=== PATIENT | male | born 1965 | race Caucasian/White ===

== ENCOUNTER 2017-09-25 22:50 | Emergency (ER) | payer MEDICARE, MEDICAID, SELFPAY ==
[2017-09-25 22:51] VITALS: BP 147/75; PULSE 80; RESP 18; TEMP 36.9; O2SAT 95; BMI 35.4
--- NOTE | 2017-09-25 23:16 | PC.NURSE ---
CLEANSED AREA ON BUTTOCK WITH SOAP AND WATER AND PATTED DRY. DRY DRSG APPLIED.
--- NOTE | 2017-09-25 23:28 | HMH.EDSKAF ---
ED Disposition Clinical Impression: Erysipelas, ESRD (end stage renal disease) on dialysis Cellulitis Qualifiers: Site of cellulitis: buttock Qualified Code(s): L03.317 - Cellulitis of buttock Disposition: Home, Self-Care Condition on Discharge: Good Instructions: DI for Skin Abscess Additional Instructions: will need wound care to follow at [facility] and use abx - check culture results - Critical Care Critical Care Time: No Attestation: On , the high probability of a clinically significant, sudden or life threatening deterioration of the following system(s) required my full and direct attention, intervention and personal management. The time I documented below is in addition to time spent performing reported procedures but includes the following listed in this critical care notation. Medical Decision Making - Medical Records Medical records reviewed: Yes: I reviewed the patient's medical records. Vital Signs: 09/25/17 22:51 09/26/17 00:30 Temperature 98.4 F Temperature Source Oral Pulse Rate [Right Radial] 80 82 Respiratory Rate 18 18 Blood Pressure [Right Arm] 147/75 131/76 Blood Pressure Mean [Right Arm] 99 94 Blood Pressure Source [Right Arm] Automatic Cuff Automatic Cuff Blood Pressure Position [Right Arm] Sitting Supine 02 Sat by Pulse Oximetry 95 96 Oxygen Delivery Method Room Air Room Air - Lab Data Lab results reviewed: Yes: I reviewed the patient's lab results. Lab Results 09/25/17 23:55: WBC 4.8, RBC 3.61 L, Hgb 10.8 L, Hct 36.3 L, MCV 100.7 H, MCH 29.8, MCHC 29.6 L, RDW 18.6 H, Plt Count 175, MPV 7.7, Neut % (Auto) 67.9, Lymph % (Auto) 14.8, [place] % (Auto) 9.9 H, Eos % (Auto) 6.2, Baso % (Auto) 1.1, Neut # (Auto) 3.2, Lymph # (Auto) 0.7, [place] # (Auto) 0.5, Eos # (Auto) 0.3, Baso # (Auto) 0.1 09/25/17 23:55: Sodium 132 L, Potassium 4.4, Chloride 96 L, Carbon Dioxide 28, Anion Gap 12.4, BUN 22 H, Creatinine 4.24 H, Estimated Creat Clear 32, Estimated GFR 15 L*, Est GFR ( Amer) 18 L*, Glucose 385 H, Calcium 8.1 L, Total Bilirubin 0.4, AST 14 L, ALT 19, Alkaline Phosphatase 214 H, Total Protein 8.1, Albumin 3.0 L, Globulin 5.1 H, Albumin/Globulin Ratio 0.6 L Result diagrams: 09/25/17 23:55 09/25/17 23:55 Orders (Tests/Meds): ED MEDICATIONS Discontinued Medications Generic Name Dose Route Start Last Admin Trade Name Freq PRN Reason Stop Dose Admin Cephalexin HCl 500 mg 09/26/17 00:29 Cephalexin 500mg Capsule PO 09/26/17 00:30 ONCE ONE Protocol Trimethoprim/Sulfamethoxazole 1 each 09/26/17 00:29 Bactrim Ds Tablet PO 09/26/17 00:30 ONCE ONE Protocol ORDERS Category Date Time Status Wound Culture and Gram Stain Stat Micro 09/25/17 23:30 Ordered - Zhang Inquiry Pt receiving controlled substance: No Skin/Abscess/FB HPI - General Chief complaint: Skin/Abscess/Foreign Body Stated complaint: SKIN Time Seen by Provider: 09/25/17 23:28 Mode of Arrival: EMS Source of Information: Patient, EMS, Medical Record Limitations: No Limitations Description of Symptoms (Recalled from ER Triage Doc. by RN): PT REPORTS A WOUND ON HIS BUTTOX THAT IS BLEEDING AND STICKING TO HIS PANTS. - History of Present Illness HPI narrative: pt has esrd on dialysis with tender area lt buttock which bleed kala SPANGLER complaint: abscess/boil Onset (ago): day(s) Tetanus up to date: unsure Location: buttocks Severity: moderate Treatments prior to arrival: none - Related Data Home Medications Medication Instructions Recorded Confirmed Baclofen [Lioresal 10mg tablet] 10 mg PO BID 09/25/17 09/25/17 Calcium Acetate [Phoslo 667mg 1,334 mg PO TID 09/25/17 09/25/17 capsule] Carvedilol [Carvedilol 3.125mg Tab] 3.125 mg PO DAILY 09/25/17 09/25/17 Clopidogrel Bisulfate [Plavix 75mg 75 mg PO DAILY 09/25/17 09/25/17 Tab] Lactulose [Lactulose 10gm/15ml 60 ml PO TID 09/25/17 09/25/17 Oral Soln] Midodrine HCl [Midodrine 5mg 10
[2017-09-26 00:11] LABS: Basophils # 0.1 K/mm3 (0-0.2); Basophils % 1.1 % (0.1-2.0); Eosinophils # 0.3 K/mm3 (0.0-0.4); Eosinophils % 6.2 % (0.1-12.0); Hematocrit 36.3 % (42.0-52.0); Hemoglobin 10.8 g/dL (14.1-18.0); Lymphocytes # 0.7 K/mm3 (0.7-4.5); Lymphocytes % 14.8 K/mm3 (10-50); Mean Corpuscular HGB Conc 29.6 g/dL (31.8-35.4); Mean Corpuscular Hemoglobin 29.8 pg (27.0-31.2); Mean Corpuscular Volume 100.7 fl (80-94); Mean Platelet Volume 7.7 fl (7.4-10.4); Monocytes # 0.5 K/mm3 (0.1-1.0); Monocytes % 9.9 % (1.7-9.3); Neutrophils # 3.2 K/mm3 (1.8-7.8); Neutrophils % 67.9 % (37.0-80.0); Platelet Count 175 K/mm3 (142-424); Red Blood Count 3.61 M/mm3 (4.60-6.20); Red Cell Distribution Width 18.6 % (11.5-17.5); White Blood Count 4.8 K/mm3 (4.8-10.8)
[2017-09-26 00:27] LABS: Alanine Aminotransferase 19 U/L (12-78); Albumin/Globulin Ratio 0.6 (1.1-1.8); Alkaline Phosphatase 214 U/L (46-116); Anion Gap 12.4 mEq/L (5-15); Aspartate Amino Transferase 14 U/L (15-37); Bilirubin,Total 0.4 mg/dL (0.2-1.0); Blood Urea Nitrogen 22 mg/dL (7-18); Calcium 8.1 mg/dL (8.5-10.1); Carbon Dioxide 28 mmol/L (21.0-32.0); Chloride 96 mmol/L (98-107); Creatinine Clearance Estimated 32 mL/min (0-300); Estimated Glomerular Filt Rate 15 ml/min (>60); GFR (African American) 18 ML/MIN (>60); Globulin 5.1 gm/dl (1.3-3.2); Glucose 385 mg/dL (74-106); Potassium 4.4 mmoL/L (3.5-5.1); Sodium 132 mmol/L (136-145); Total Protein,Serum 8.1 gm/dL (6.4-8.2)
[2017-09-26 00:30] VITALS: BP 131/76; PULSE 82; RESP 18; O2SAT 96
[2017-09-26 00:31] LABS: Creatinine,Serum 4.24 mg/dL (0.70-1.30)
== END 2017-09-26 00:58 | disposition home or self-care (01) ==
LOC: ER 09-26 00:55
PROVIDERS: Emergency Provider Emergency Medicine
DX: L03.317 Cellulitis of buttock (principal); N18.6 End stage renal disease; Z99.2 Dependence on renal dialysis; Z79.899 Other long term (current) drug therapy; Z87.891 Personal history of nicotine dependence; A46 Erysipelas
CPT/HCPCS: 80053; 85025; 87070; 87077; 87186; 87205; 99283

== ENCOUNTER 2017-09-30 22:38 | Emergency (ER) | payer MEDICARE, MEDICAID, SELFPAY ==
[2017-09-30 22:40] VITALS: BP 133/74; PULSE 91; RESP 18; TEMP 36.6; O2SAT 92; BMI 39.1
--- NOTE | 2017-09-30 22:54 | HMH.EDFALL ---
ED Disposition Clinical Impression: Hepatic encephalopathy, Hyperkalemia, Contusion of left knee Chronic renal failure Qualifiers: Chronic kidney disease stage: unspecified stage Qualified Code(s): N18.9 - Chronic kidney disease, unspecified Disposition: Xfer Short-Term Hosp Condition on Discharge: Fair - Critical Care Critical Care Time: No Attestation: On 09/30/17, the high probability of a clinically significant, sudden or life threatening deterioration of the following system(s) required my full and direct attention, intervention and personal management. The time I documented below is in addition to time spent performing reported procedures but includes the following listed in this critical care notation. Medical Decision Making Vital Signs: 09/30/17 22:40 09/30/17 23:06 Temperature 97.9 F Temperature Source Oral Pulse Rate [Right Radial] 91 H 81 Respiratory Rate 18 20 Blood Pressure [Right Arm] 133/74 133/74 Blood Pressure Mean [Right Arm] 93 93 Blood Pressure Source [Right Arm] Automatic Cuff Automatic Cuff Blood Pressure Position [Right Arm] Supine Supine 02 Sat by Pulse Oximetry 92 L 91 L Oxygen Delivery Method Room Air Room Air - Lab Data Lab Results 09/30/17 23:50: WBC 6.0, RBC 3.06 L, Hgb 8.9 L, Hct 30.2 L, MCV 98.7 H, MCH 29.2, MCHC 29.6 L, RDW 17.8 H, Plt Count 258, MPV 8.2, Neut % (Auto) 75.8, Lymph % (Auto) 8.7 L, [place] % (Auto) 10.1 H, Eos % (Auto) 4.8, Baso % (Auto) 0.6, Neut # (Auto) 4.6, Lymph # (Auto) 0.5 L, [place] # (Auto) 0.6, Eos # (Auto) 0.3, Baso # (Auto) 0.0 09/30/17 23:50: Sodium 134 L, Potassium 5.2 H, Chloride 97 L, Carbon Dioxide 26, Anion Gap 16.2 H, BUN 58 H, Creatinine 7.58 H, Estimated Creat Clear 20, Estimated GFR 8 L*, Est GFR ( Amer) 9 L*, Glucose 289 H, Calcium 8.4 L, Total Bilirubin 0.4, AST 17, ALT 18, Alkaline Phosphatase 236 H, Total Protein 8.8 H, Albumin 3.0 L, Globulin 5.8 H, Albumin/Globulin Ratio 0.5 L 09/30/17 23:50: Ammonia 94 H Result diagrams: 09/30/17 23:50 09/30/17 23:50 Orders (Tests/Meds): ED MEDICATIONS Discontinued Medications Generic Name Dose Route Start Last Admin Trade Name Willamq PRN Reason Stop Dose Admin Oxycodone HCl 10 mg 09/30/17 23:05 09/30/17 23:30 Oxyir 5mg Tablet PO 09/30/17 23:06 10 mg ONCE ONE Administration ORDERS Category Date Time Status Knee XR left 3 views [XR knee LT 3V] Stat Exams 09/30/17 23:03 Taken ECG Request by /Jody Stat Y 10/01/17 00:53 Ordered - Radiology Data #1 Image(s): Knee Image Reviewed: Yes I reviewed the patient's radiology results X-ray interpreted by Dung Patterson M.D.: Evidence of previous fracture of proximal tibia. Probable fracture of patella also, of uncertain age. No old x-rays for comparison. Mother states that previous x-rays had been done in [place] and at [facility]. He has no old x-rays here. - ECG Data Tracing #1 EKG interpreted by Dung Patterson MD: Rhythm: sinus Rate: 82 Hecker: Right Ectopy: none Conduction: normal ST Segment Changes: none T Wave Changes: none Q Waves: none No evidence of acute ischemia or injury Low voltage QRS Poor R-wave progression, possible old anterior NV No T-wave changes from hyperkalemia - Zhang Inquiry Pt receiving controlled substance: Yes Zhang was queried for this patient: Yes Reference #:: [id number] Risks and benefits of using a controlled substance: were not discussed with pt by me (already taking as outpatient) Comment: 2 rxs for oxycodone 10 mg. last rx 08/31/17. Medical Decision Making Narrative: Previous records reviewed. The patient was seen here 5 days ago for a draining or bleeding wound on his buttocks, diagnosed with cellulitis and erysipelas. He was started Keflex and Bactrim. He was seen by Dr. Herron in the emergency department, who is also his primary care physician at [facility]. Dr. Herron describes erythema of his abdomen at that time as well. 11
--- NOTE | 2017-09-30 23:03 | XR_ITS ---
XR knee LT 3V Ordering Physician: Dung Patterson MD Patient Age: 51 years: Male HISTORY: ITS.REASON: fell HISTORY of old patellar fracture 16 months ago. Old proximal tibial fracture as well. Patient recently fell trying to get into wheelchair. TECHNIQUE: 3 views left knee portable COMPARISON :None FINDINGS oblique fracture line proximal tibia. This Extends obliquely from medial aspect of proximal tibial metaphysis,, & passes upward obliquely fashion- exiting at the junction of the lateral tibial plateau and the tibial spine. I favor this is an older fracture rather than acute given its overall appearance. Mild sclerosis along this fracture fracture line with areas that appear partially healed. Correlation the old outside films would be helpful. No previous available at this facility. Relatively Small joint effusion at suprapatella bursa. Would expect to see a much larger joint effusion if this were acute or recent fracture. Prominent diffuse subcutaneous edema throughout superficial soft tissues- extending from the lower thigh, about the knee & into upper calf. Subcutaneous edema. Mild degenerative changes slight sharpening the joint margins. Patellofemoral relationships unremarkable on this standard 3 view study. If pain in this region consider sunrise view. Also note Subtle undulating lucent line transversing patella on lateral view..-More likely this is old fracture is well. Again a would expect to see larger joint effusion for acute injury. Suggest obtaining prior films for comparison.. However CT may be of benefit if pronounced pain currently in order to to further evaluate. IMPRESSION 1. Most likely old oblique fracture proximal tibia 2. also subtle undulating line transversing patella on lateral view.-most likely old fracture as well. 3. Relatively Small joint effusion suprapatella bursa,. Would expect much larger joint effusion if either these were acute fractures.. 4. Suggest follow-up and comparison to old films .. However if severe pain currently suggest CT to further evaluate Diffuse extensive subcutaneous edema.
[2017-09-30 23:06] VITALS: BP 133/74; PULSE 81; RESP 20; O2SAT 91
[2017-09-30 23:59] LABS: Basophils % 0.6 % (0.1-2.0); Eosinophils # 0.3 K/mm3 (0.0-0.4); Eosinophils % 4.8 % (0.1-12.0); Hematocrit 30.2 % (42.0-52.0); Hemoglobin 8.9 g/dL (14.1-18.0); Lymphocytes # 0.5 K/mm3 (0.7-4.5); Lymphocytes % 8.7 K/mm3 (10-50); Mean Corpuscular HGB Conc 29.6 g/dL (31.8-35.4); Mean Corpuscular Hemoglobin 29.2 pg (27.0-31.2); Mean Corpuscular Volume 98.7 fl (80-94); Mean Platelet Volume 8.2 fl (7.4-10.4); Monocytes # 0.6 K/mm3 (0.1-1.0); Monocytes % 10.1 % (1.7-9.3); Neutrophils # 4.6 K/mm3 (1.8-7.8); Neutrophils % 75.8 % (37.0-80.0); Platelet Count 258 K/mm3 (142-424); Red Blood Count 3.06 M/mm3 (4.60-6.20); Red Cell Distribution Width 17.8 % (11.5-17.5)
[2017-10-01 00:19] LABS: Ammonia 94 umol/L (19-54)
[2017-10-01 00:22] LABS: Alanine Aminotransferase 18 U/L (12-78); Albumin/Globulin Ratio 0.5 (1.1-1.8); Alkaline Phosphatase 236 U/L (46-116); Anion Gap 16.2 mEq/L (5-15); Aspartate Amino Transferase 17 U/L (15-37); Bilirubin,Total 0.4 mg/dL (0.2-1.0); Blood Urea Nitrogen 58 mg/dL (7-18); Calcium 8.4 mg/dL (8.5-10.1); Carbon Dioxide 26 mmol/L (21.0-32.0); Chloride 97 mmol/L (98-107); Creatinine Clearance Estimated 20 mL/min (0-300); Estimated Glomerular Filt Rate 8 ml/min (>60); Globulin 5.8 gm/dl (1.3-3.2); Glucose 289 mg/dL (74-106); Potassium 5.2 mmoL/L (3.5-5.1); Sodium 134 mmol/L (136-145); Total Protein,Serum 8.8 gm/dL (6.4-8.2)
[2017-10-01 00:23] LABS: Creatinine,Serum 7.58 mg/dL (0.70-1.30)
[2017-10-01 00:24] LABS: GFR (African American) 9 ML/MIN (>60)
--- NOTE | 2017-10-01 00:49 | PC.NURSE ---
dr west speaking with dr parikh nephrology at .
--- NOTE | 2017-10-01 01:10 | PC.NURSE ---
Called report to charge nurse at ED
[2017-10-01 01:38] VITALS: BP 136/80; PULSE 83; RESP 18; TEMP 36.6; O2SAT 95
== END 2017-10-01 01:38 | disposition short-term general hospital (02) ==
PROVIDERS: Emergency Provider Emergency Medicine
DX: S80.02XA Contusion of left knee, initial encounter (principal); W05.0XXA Fall from non-moving wheelchair, initial encounter; Y93.9 Activity, unspecified; Y92.9 Unspecified place or not applicable; K72.90 Hepatic failure, unspecified without coma; E87.5 Hyperkalemia; N18.9 Chronic kidney disease, unspecified; Z79.01 Long term (current) use of anticoagulants; Z79.02 Long term (current) use of antithrombotics/antiplatelets; Z79.899 Other long term (current) drug therapy; Z87.891 Personal history of nicotine dependence
CPT/HCPCS: 73562; 80053; 82140; 85025; 93005; 93041; 99283